=== PATIENT | male | born 1995 | race Caucasian/White ===

== ENCOUNTER 2023-05-16 22:05 | Emergency (ER) | payer OTHER, SELFPAY ==
[2023-05-16 22:06] VITALS: BP 147/106; PULSE 81; RESP 16; TEMP 36.9; O2SAT 98; BMI 28.0
--- NOTE | 2023-05-16 22:20 | CT_ITS ---
STUDY: CT ORBITS WITHOUT CONTRAST REASON FOR EXAM: Male, 27 years old. R eye/orbit injury RADIATION DOSAGE (If Supplied By Facility): CTDIvol = ( 29.38 ) mGy, DLP = ( 415.23 ) mGycm TECHNIQUE: The patient was scanned in a multi detector CT scanner. Transaxial imaging was performed without the administration of intravenous contrast material. Sagittal and coronal images were reconstructed. Individualized dose optimization techniques were used for this CT. COMPARISON: None. FINDINGS: Normal globes. Normal intraconal spaces. Normal optic nerve sheath complex. Normal bilateral extraocular muscles. Normal lacrimal glands. Subtle nondisplaced fractures of the medial wall and floor of the right orbit with hemorrhage in the right ethmoid air cells and the right maxillary sinus. No herniation of intraorbital contents into the maxillary sinus. Normal bilateral maxillary bones. Normal bilateral frontozygomatic arches. Normal bilateral zygomatic temporal arches. Normal frontal sinus. Normal ethmoidal sinuses. Large mucous retention cyst in the left maxillary sinus consistent with chronic sinusitis. Normal sphenoid sinuses. Normal soft tissue structures. CT/Orb Sella Post Fossa Ear w/o IMPRESSION: Subtle nondisplaced fractures of the medial wall and floor the right orbit. Electronically Signed: Fuentes Hinton MD at 22:59 EDT ,
--- NOTE | 2023-05-16 22:20 | EX.ED.VIS.EY ---
HPI History of Present Illness Chief Complaint: Eye Problem Informant: patient Onset/Context/Timing Location: Right Eye Onset: Today (JPTA) Context: Sudden Onset Timing: Continuous Current Severity: 5/10 Worsened by: moving eye around Relieved by: remaining still Associated Symptoms Associated Symptoms - Eyes: Pain and Redness; Negative for Foreign body sensation or Photophobia Visual Changes: right: Blurred vision (w/o vis field cut, flashing lights, floaters) History of injury: Yes and Direct trauma Visual correction: None Narrative Narrative: Patient was working on a tire and a pry bar came up from it and smacked him in the right eye immediately. He states it did not seem to strike him hard on any of the facial bones, which do not hurt. However subsequently he has blurry vision in the right eye, pressure behind the eye, he had a small amount of bleeding from his right nose, and his eye hurts whenever he moves around. No diplopia. [facility] Medical History (Updated 05/17/23 @ 00:[address] Clifford Jimenez MD) No acute medical problems Home Medications hydrocodone-acetaminophen 5-325mg 5mg-325mg 1 tab PO Q6H PRN PRN Pain 3 days #10 TABLETS 05/17/23 [Rx Last Taken Unknown] Allergy/AdvReac Type Severity Reaction Status Date / Time No Known Allergies Allergy Verified 05/16/23 22:08 Social History Smoking Status: Never smoker ROS ROS ED Constitutional Constitutional ED: Denies chills or fever(s) Eyes Eyes: Reports as per HPI, blurry vision right and eye pain ENT ENT ED: Reports epistaxis; Denies ear pain, facial pain, rhinorrhea or sore throat Gastrointestinal Gastrointestinal: Denies nausea or vomiting Neurologic Neurologic: Denies headache(s), paresthesias or weakness EXAM Physical Exam Const Vital Signs: 05/16/23 22:06 Temperature 98.4 F Temperature Source Temporal Pulse Rate 81 Respiratory Rate 16 Blood Pressure 147/106 H Blood Pressure Mean 119 Pulse Ox 98 Oxygen Delivery Method Room Air Positive well nourished and well developed General Appearance ED: well developed and NAD HEENT HEENT Narrative: There is no sinus tenderness. There is no current epistaxis or intraoral injury or malocclusion. Midface stable and nontender all bones, no infraorbital hypoesthesia. atraumatic; Negative for tenderness Mouth ED: Yes oral and palatal mucosa normal and Yes lips normal Mouth: oral and palatal mucosa normal and lips normal Eyes PERRL and EOMs intact bilaterally Eyes Narrative: There is no extraocular entrapment or palsy, but when moving laterally especially, the pain is significant in the right eye. There is evidence of trauma with what appears to be subconjunctival hemorrhage at the medial aspect of the globe and inferiorly. There is no proptosis or endophthalmos. Neck no lymphadenopathy and supple Neuro oriented x3, CN's II-XII intact bilaterally and gait normal Sensorium / Orientation: alert Skin Lesions: no lesions Rashes: no rashes MDM MDM MDM Narrative Medical decision making narrative: CT of the orbits was obtained, given high suspicion for an orbital fracture, retrobulbar hemorrhage also in the differential diagnosis. Clinically the patient does not have proptosis, but he does have pain with ocular ocular movements. CT confirms fracture of the orbit, the inferior wall and the medial wall, both appear to be nondisplaced. I reviewed the images and the report and agree with it. I examined him with a slit lamp. He does not have a hyphema. The anterior chamber is deep and quiet and intact. I see no cell or flare. He does appear to have a very subtle submillimeter nonulcerative lesion of the cornea at about 7:00 fairly centrally, it does not appear to be a foreign body that needs to be removed but it does take up dye and does not move. Negative Yolie sign. No other areas of dye uptake. Visual acuity is 20/20 OD, 20/20 OS, and 20/20 OU. Attempted to discuss with Dr. Perez who is on-call for ophthalmology, but after multiple phone calls as of the timing of this dictation have not yet received a call and the patient and family want to leave. Advised to follow-up as soon as possible with them and ENT, there is no one call center consultant at this time with otolaryngology, I think it is less likely this is a surgical fracture but he needs to follow-up. Given appropriate discharge instructions and a prescription for pain medication which he declined here. Discharge Plan Triage Chief Complaint: Eye Problem ED Provider: Clifford Jimenez Dx/Rx/DC Orders Clinical Impression: Closed fracture of right orbit Instructions: ED Facial Fracture Prescriptions: New hydrocodone-acetaminophen [hydrocodone-acetaminophen] 5-325 mg tablet 1 tab PO Q6H PRN PRN (Reason: Pain) 3 Days Qty: 10 0RF Primary Care Provider: Care Physician,No Primary Referrals: Fabien Bailey MD [Med Staff - Active Staff] - As soon as possible Wagner Perez MD [Med Staff - Active Staff] - As soon as possible Disposition Disposition: Home, Self Care
[2023-05-16] MEDS: Fluorescein 1 MG STRIP 1 STRIP RIGHT EYE (22:23)
== END 2023-05-17 01:31 | disposition home or self-care (01) ==
PROVIDERS: Emergency Provider Emergency Medicine; Visit Provider Emergency Medicine
DX: S02.31XA Fracture of orbital floor, right side, initial encounter for closed fracture (principal); X58.XXXA Exposure to other specified factors, initial encounter
CPT/HCPCS: 70480; 99283